=== PATIENT | male | born 1970 | race Caucasian/White ===

== ENCOUNTER 2016-08-20 11:47 | Emergency (ER) | payer OTHER ==
[~2016-08-20] VITALS: Ht 185.4 cm; Wt 86.2 kg
[2016-08-20 13:57] VITALS: BP 137/84
[2016-08-20] MEDS ORDERED: traMADol HCL 50 MG TAB PO ONE (14:15)
== END 2016-08-20 14:38 | disposition home or self-care (01) ==
LOC: ER 11:47
DX: K04.7 Periapical abscess without sinus (principal)